=== PATIENT | male | born 1985 | race Two or more races ===

== ENCOUNTER 2018-08-21 15:08 | Emergency (ER) | payer MEDICARE, OTHER ==
[~2018-08-21] VITALS: Ht 188 cm; Wt 102.1 kg
--- NOTE | 2018-08-21 15:25 | NUR ---
ED Nurse Note: PT NOT IN THE WAITING ROOM. CALLED TWICE FOR TRIAGE
[2018-08-21] MEDS ORDERED: MELATONIN5 M5 ORAL (16:02)
[2018-08-21] MEDS ORDERED: OXYCODONE HCL20 M1 ORAL (16:02)
[2018-08-21] MEDS ORDERED: GABAPENTIN300 MG ORAL (16:02)
[2018-08-21] MEDS ORDERED: CYMBALTA30 MG ORAL (16:02)
[2018-08-21] MEDS ORDERED: KLONOPIN2 MG PO (16:02)
[2018-08-21 16:10] VITALS: BP 123/74
--- NOTE | 2018-08-21 16:10 | NUR ---
ED Nurse Note: pt walked in to ED due to slipped and fell injury at hotel. per pt, floor was wet due to mopping. ambulatory with steady gait. no head injury reported. pt c/o left knee and left lower extremty pain. per pt, usually had pain on back but it gets worse after fell. will wait for the further order.
--- NOTE | 2018-08-21 16:29 | Emergency Room Report ---
History of Present Illness General Chief Complaint: Multiple Trauma/Fall Source: Patient (Medhat Alcocer) Present Illness HPI 33-year-old male patient presents the ER complaining of left knee and big toe pain status post fall earlier today. Also complaining of back pain. Patient reports that he was walking out of a hotel when he slipped and fell and landed on his left knee. Reports that his left big toe "pulled back" when he denies pain radiating to the rest of his foot. Reports pain with ambulation. Denies bleeding. Denies open wounds or lacerations. Reports history of chronic back pain that was exacerbated with a fall. Denies hitting his back during the fall. Denies hitting his head or loss of consciousness. Denies syncope or dizziness prior to fall. Denies bowel or bladder incontinence. States that he takes oxycodone for his chronic back pain and Cymbalta, states that he took a dose medication following the fall with mild relief of pain symptoms. Denies other aggravating or relieving factors. Reports he contacted his income tax advisor who instructed him to come to the ER to be evaluated. (Medhat Alcocer) Allergies: Coded Allergies: No Known Allergies (Unverified , 08/21/18) Patient History Past Medical History: see triage record Reviewed Nursing Documentation: PMH: Agreed; PSxH: Agreed (Medhat Alcocer) Review of Systems All Other Systems: negative except mentioned in HPI (Medhat Alcocer) Physical Exam Vital Signs Date Time Temp Pulse Resp B/P (MAP) Pulse Ox O2 Delivery O2 Flow Rate FiO2 08/21/18 15:58 97.5 75 20 123/74 (90) 99 Room Air Sp02 EP Interpretation: reviewed, normal General Appearance: well appearing, no apparent distress, alert, GCS 15, non- toxic Head: normocephalic, atraumatic Eyes: bilateral eye normal inspection, bilateral eye PERRL ENT: hearing grossly normal, normal pharynx, no angioedema, normal voice, uvula midline, moist mucus membranes Neck: full range of motion Respiratory: lungs clear, normal breath sounds, no rhonchi, no respiratory distress, no accessory muscle use, no wheezing, speaking full sentences Cardiovascular #1: regular rate, rhythm, no edema Cardiovascular #2: 2+ dorsalis pedis (R), 2+ dorsalis pedis (L) Musculoskeletal: back normal, digits/nails normal, gait/station normal, normal range of motion, non-tender, other - No deformity, no abrasion, no erythema or edema, no laxity with varus or valgus stress,, tender - Anterior inferior left knee; dorsum of left big toe of her proximal phalanx Neurologic: alert, oriented x3, responsive, motor strength/tone normal, sensory intact Psychiatric: mood/affect normal Skin: no rash (Medhat Alcocer) Medical Decision Making PA Attestation Dr. Monsivais is my supervising Physician whom patient management has been discussed with. (Medhat Alcocer) Diagnostic Impression: Primary Impression: Fall Additional Impressions: Knee contusion Toe sprain ER Course Pt. presents to the ED c/o left big toe and left knee pain status post fall earlier today. Ddx considered but are not limited to fracture, sprain, strain, contusion, dislocation. No erythema, no warmth to touch, no fever, nontoxic appearing, low suspicion for septic joint. Soft compartments, no pulselessness, no pallor, no paresthesias, low suspicion for compartment syndrome at this time. Vital signs: are WNL, pt. is afebrile Ordered X-ray and pain medication. ER COURSE Provided with pain medication and muscle relaxant for back. Reports did not fall back. Denies bowel or bladder incontinence, does not require back x-rays. An X-ray of the left foot shows no acute fracture per the preliminary reading. Likely toe sprain causing pain symptoms. An X-ray of the left knee shows no acute fracture per the preliminary reading. Likely contusion causing pain symptoms. Discuss results with the patient. Provided patient with copy of results. Instructed patient to followup with PCP and discuss results of report with patient, discuss need for further treatment and referral. Dean wrap provided and applied to the left knee was checked afterwards by me showing good alignment and support with distal neurovascular functioning intact. Crutches provided. Patient instructed on RICE method: rest, ice, compression, elevation. Patient instructed on rest, ice and heat. Patient instructed to be WBAT Contact information for orthopedic urgent care provided, follow-up with urgent care if unable to followup with primary care provider and get referral to air pollution specialist. Followup with primary care provider. Discuss referral to ortho/pain management/ PT as needed. Discuss further imaging with MRI/CT as needed. DISCHARGE: At this time pt. is stable for d/c to home. Patient is resting comfortably, in no acute distress, nontoxic appearing, talking without difficulty. Will provide printed patient care instructions, and any necessary prescriptions. Patient instructed to follow with primary care provider in 3 - 5 days and to request further follow-up as needed. Care plan and follow up instructions have been discussed with the patient prior to discharge. Take medications as directed. Patient questions asked and answered. Patient reports understanding and agreement to treatment plan. ER precautions given, patient instructed to return to ER immediately for any new or worsening of symptoms. - Please note that this Emergency Department Report was dictated using [employer] manager technology software, occasionally this can lead to erroneous entry secondary to interpretation by the dictation equipment. (Medhat Alcocer) ER Course This patient was seen by the PA for a slip and fall. He was discharged many hours before he came to work. I never saw this patient. The ER was very busy and I was busy seeing patients. The fire department captain came in to talk to Porfirio, the discharge nurse and then asked to talk to me. He said that the patient call 911 from the parking lot. He claimed to be suicidal and that refuse to see the patient. Patient wanted to be taken to [facility]. I did not know of this incident. I told the captain that we would not refuse to see any patient, especially one who called from the parking lot. Patient was taken to [facility]. I discussed the case with our charge nurse. He said that one of waxing machine operator from [employer] came in and said that patient called 911 and wanted to go to another hospital. [employer] said that they are not [employer]. He said that patient told him that we refuse to see patient. Porfirio said that we are not [employer] either and we never refuse any patient. He said he told them to bring the patient in. Somehow the patient was taken to another hospital. I reiterate to the captain that no one came to talk to me regarding this patient and that patient should been taking back to the ER if he called 911 from the parking lot. I looked up this patient on the [employer] system. He is from [facility]. He received 90 tablets of clonazepam every month. Also received oxycodone 10 mg #120 tablets every month. A few hours after this incidence, our ER received a call from phone # [phone]. Call ID showed that this was from [place]. Initially, the collar said that he was a doctor from the facility there. Then he said that he was a doctor from [facility]. This was very suspicious and I asked the betting clerk to take a message and if wants information, they can fax us a request due to HIPPA. The caller then hang up. (Cecilio Altman MD) Other X-Ray Diagnostic Results Other X-Ray Diagnostic Results #1: X-Ray ordered: left knee # of Views/Limited Vs Complete: 3 View Indication: Pain EP Interpretation: Yes PA Xray: Interpretation reviewed, by supervising MD, and agrees with findings. Interpretation: no dislocation, no soft tissue swelling, no fractures Impression: No acute disease PA Scribe Text Juancarlos Alcocer PA-C Other X-Ray Diagnostic Results #2: X-Ray ordered: left foot # of Views/Limited Vs Complete: 3 View Indication: Pain EP Interpretation: Yes PA Xray: Interpretation reviewed, by supervising MD, and agrees with findings. Interpretation: no dislocation, no soft tissue swelling, no fractures Impression: No acute disease PA Scribe Text Juancarlos Alcocer PA-C (Medhat Alcocer P.A.) Last Vital Signs Date Time Temp Pulse Resp B/P (MAP) Pulse Ox O2 Delivery O2 Flow Rate FiO2 08/21/18 15:58 97.5 75 20 123/74 (90) 99 Room Air Status: improved (Medhat Alcocer P.A.) Disposition: HOME, SELF-CARE Condition: Stable Patient Instructions: Foot Sprain, Knee Pain, [id number] Additional Instructions: Patient instructed to follow up with primary care provider and discuss further referral to orthopedics/physical therapy/pain management as needed. If unable to followup with PCP, followup with orthopedic urgent care in 5-7 days , call to schedule appointment. Patient instructed on RICE method: rest, ice, compression, elevation. Patient instructed to WBAT. Take medications as directed. Patient questions asked and answered. ER precautions given, patient instructed to return to ER immediately for any new or worsening of symptoms. [facility] [address] [facility] [address] [facility], [address] [email or web address] Medhat Alcocer August 21, 2018 16:29 Cecilio Altman MD August 22, 2018 01:25
[2018-08-21] MEDS ORDERED: Methocarbamol 500mg tab ORAL ONE (16:30)
--- NOTE | 2018-08-21 16:45 | NUR ---
ED Nurse Note: sandwiches and juice provide as requested.
--- NOTE | 2018-08-21 17:00 | NUR ---
ED Nurse Note: pt wants more pain meds "norco" LENNOX Alcocer notified.
[2018-08-21] MEDS ORDERED: HYDROcodone/Acetamin 5/325 tab ORAL ONE (17:15)
--- NOTE | 2018-08-21 17:39 | Diagnostic Imaging Report ---
EXAM: XR Left Foot Complete, 3 or More Views CLINICAL HISTORY: PAIN TECHNIQUE: Frontal, lateral and oblique views of the left foot. COMPARISON: No relevant prior studies available. FINDINGS: Bones/joints: No acute fracture. Soft tissues: No radiodense foreign body. IMPRESSION: No acute fracture.
--- NOTE | 2018-08-21 17:40 | Diagnostic Imaging Report ---
EXAM: XR Left Knee, 3 views CLINICAL HISTORY: PAIN TECHNIQUE: Three views of the left knee. COMPARISON: No relevant prior studies available. FINDINGS: Bones/joints: No acute fracture. Mild degenerative changes. Soft tissues: No radiodense foreign body. Soft tissue swelling. IMPRESSION: No acute fracture.
[2018-08-21 18:13] VITALS: BP 118/70
--- NOTE | 2018-08-21 18:14 | NUR ---
ER DISCHARGE NOTE: Patient is cleared to be discharged per ERMD with friend, pt is aox4, on room air, with stable vital signs. pt was given dc instructions, pt was able to verbalize understanding, pt id band removed. pt is able to ambulate with steady gait. pt took all belongings.
== END 2018-08-21 18:13 | disposition home or self-care (01) ==
LOC: EMR 16:30
DX: S80.02XA Contusion of left knee, initial encounter (principal); S93.502A Unspecified sprain of left great toe, initial encounter; W01.0XXA Fall on same level from slipping, tripping and stumbling without subsequent striking against object, initial encounter; Y92.59 Other trade areas as the place of occurrence of the external cause; M54.9 Dorsalgia, unspecified
CPT/HCPCS: 99284